=== PATIENT | female | born 1985 | race Caucasian/White ===

== ENCOUNTER 2022-07-04 10:10 | Emergency (ER) | payer BC ==
[2022-07-04] MEDS ORDERED: Ondansetron ODT 4 MG TAB ONE (11:01)
== END 2022-07-04 11:07 | disposition home or self-care (01) ==
LOC: BURERS 10:10
DX: T38.3X1A Poisoning by insulin and oral hypoglycemic [antidiabetic] drugs, accidental (unintentional), initial encounter (principal); K29.00 Acute gastritis without bleeding; E11.9 Type 2 diabetes mellitus without complications; K21.9 Gastro-esophageal reflux disease without esophagitis; I10 Essential (primary) hypertension; Z79.84 Long term (current) use of oral hypoglycemic drugs; Z79.899 Other long term (current) drug therapy
CPT/HCPCS: 36416; 99284; Q0162